=== PATIENT | male | born 1985 | race Caucasian/White ===

== ENCOUNTER 2022-04-12 15:45 | Emergency (ER) | payer OTHER ==
[~2022-04-12] VITALS: Ht 177.8 cm; Wt 104.3 kg
[2022-04-12 18:22] VITALS: BP 123/67
--- NOTE | 2022-04-12 18:24 | NUR ---
Patient discharged to home in stable condition. Written and verbal after care instructions given. Patient verbalizes understanding of instructions. Stressed follow up or return to ER for worsening s/s.
== END 2022-04-12 18:24 | disposition home or self-care (01) ==
LOC: ER 15:45
DX: F41.0 Panic disorder [episodic paroxysmal anxiety] (principal); F41.9 Anxiety disorder, unspecified; I10 Essential (primary) hypertension; E11.9 Type 2 diabetes mellitus without complications
CPT/HCPCS: A4663